=== PATIENT | male | born 1980 | race Caucasian/White ===

== ENCOUNTER 2016-10-21 20:41 | Emergency (ER) | payer SELFPAY ==
[~2016-10-21 20:41] MED LIST: BUSPAR DPS15 MG PO; CELEXA40 MG PO; ELIQUIS5 MG PO; GABAPENTIN100 MG PO; HABITROL DPS7 MG TD; HYDROCODON-ACE1 EAC2 PO; KLONOPIN DPS0.5 MG PO; LEVOFLOXACIN250 MG PO; MUCINEX600 MG PO; SILVADENE DPS50 GM TP; VIMPAT50 MG PO
--- NOTE | 2016-10-22 07:20 | ER ---
ADMIT: 10/21/2016 RM/LOC: ER [facility] MR#: [id number] [place], [place] [id number] RASHMI WHITE [address] [place] [address] Emergency Room Report SEX: M AGE: 36 : 1980 DATE: 10/21/2016 ADDENDUM: CHIEF COMPLAINT: Right wrist pain. HISTORY OF PRESENT ILLNESS: This is a 36-year-old male, who fractured his ulna styloid about 5 weeks ago. He is just in splint at this time. He just continued to ride horses. He fell off a horse and hurt his wrist again tonight. He said he felt a pop, so came into the ER. X-ray looks unchanged since previous x-ray. Having him continue to wear the splint that he is wearing. Ice. Use Tylenol or Motrin for pain. He also has wound on his right leg that looks like is acute on chronic. I am sending him home with Bactrim because it is becoming slightly erythemic. I also put a wound care consult in to have them evaluate this week. CLINICAL IMPRESSION: 1. Old ulna styloid fracture. 2. Acute on chronic wound to the right lower leg. JF Rosario / Tony Lemons MD / misha JOB #: [id number] CC: Tony Lemons MD, Attending Physician Kaleb Gutierrez PA-C, Family Physician
== END 2016-10-21 22:00 | disposition home or self-care (01) ==
LOC: ER 20:41
DX: S52.611D Displaced fracture of right ulna styloid process, subsequent encounter for closed fracture with routine healing (principal); L89.891 Pressure ulcer of other site, stage 1; M25.531 Pain in right wrist; R56.9 Unspecified convulsions; Z79.899 Other long term (current) drug therapy; X58.XXXD Exposure to other specified factors, subsequent encounter; V80.010A Animal-rider injured by fall from or being thrown from horse in noncollision accident, initial encounter; Y93.52 Activity, horseback riding; Y92.69 Other specified industrial and construction area as the place of occurrence of the external cause; Y99.0 Civilian activity done for income or pay